=== PATIENT | female | born 1955 | race Caucasian/White ===

== ENCOUNTER 2017-02-12 07:47 | Emergency (ER) | payer BC ==
[2017-02-12 07:56] VITALS: BP 154/80
--- NOTE | 2017-02-12 08:30 | UC ---
Eye Complaint HPI - HPI Summary HPI Summary: right eye red itching draining x1 day no visual changes - History of Current Complaint Chief Complaint: UCEye Stated Complaint: EYE COMPLAINT Time Seen by Provider: 02/12/17 08:14 Hx Obtained From: Patient ?: No Onset/Duration: Sudden Onset, Lasting Days - 1 Timing: Constant Severity Initially: Mild Severity Currently: Mild Pain Intensity: 2 Pain Scale Used: 0-10 Numeric Location of Injury: Conjunctiva Alleviating Factor(s): Nothing Associated Signs And Symptoms: Positive: Drainage (Purulent) - Allergies/Home Medications Allergies/Adverse Reactions: Allergies Allergy/AdvReac Type Severity Reaction Status Date / Time Neomycin Allergy Unknown Verified 02/12/17 07:57 Reaction Details Morphine AdvReac Headache Verified 02/12/17 07:57 Home Medications: Home Medications Atorvastatin* [Lipitor 20 MG*] 20 mg PO DAILY 02/12/17 [History Confirmed ] Naproxen TAB* [Naprosyn 250 mg TAB*] 500 mg PO Q6H PRN 02/12/17 [History Confirmed 02/12/17] Omeprazole CAP* [Prilosec CAP* 20 MG] 20 mg PO DAILY 02/12/17 [History Confirmed 02/12/17] Venlafaxine EXT RELEASE CAP* [Effexor Xr CAP*] 150 mg PO DAILY 02/12/17 [ History Confirmed 02/12/17] PMH/Surg Hx/FS Hx/Imm Hx Previously Healthy: Yes - Surgical History Surgical History: None - Family History Known Family History: Positive: None - Social History Occupation: Employed Full-time Lives: With Family Alcohol Use: None Substance Use Type: None Smoking Status (MU): Never Smoked Tobacco Review of Systems Constitutional: Negative Skin: Negative Eyes: Drainage, Eye Redness ENT: Negative Respiratory: Negative Cardiovascular: Negative Gastrointestinal: Negative Genitourinary: Negative Motor: Negative Neurovascular: Negative Musculoskeletal: Negative Neurological: Negative Psychological: Negative All Other Systems Reviewed And Are Negative: Yes Physical Exam Triage Information Reviewed: Yes Appearance: Well-Appearing, No Pain Distress, Well-Nourished Vital Signs: Initial Vital Signs Temp 98.2 F 02/12/17 07:50 Pulse 100 02/12/17 07:50 Resp 16 02/12/17 07:50 BP 154/80 02/12/17 07:50 Pulse Ox 98 02/12/17 07:50 Vital Signs Reviewed: Yes Eyes: Positive: Conjunctiva Clear - os, Conjunctiva Inflamed - od, Discharge - od, Other: - perrla, eomi, fundascopic exam wnl ENT Exam: Normal ENT: Positive: Normal ENT inspection, Hearing grossly normal. Negative: Nasal congestion, Nasal drainage, Tonsillar swelling, Tonsillar exudate, Trismus, Muffled/hoarse voice Dental Exam: Normal Neck exam: Normal Neck: Positive: Supple, Nontender, No Lymphadenopathy Respiratory Exam: Normal Respiratory: Positive: Chest non-tender, No respiratory distress, No accessory muscle use Cardiovascular Exam: Normal Cardiovascular: Positive: Pulses Normal, Brisk Capillary Refill Musculoskeletal Exam: Normal Musculoskeletal: Positive: Strength Intact, ROM Intact, No Edema Neurological Exam: Normal Neurological: Positive: Alert, Muscle Tone Normal Psychological Exam: Normal Skin Exam: Normal Eye Complaint Course/Dx - Course Course Of Treatment: warm compress, polytrim eye dropps, follow with pcp off work today - Differential Dx/Diagnosis Differential Diagnosis/HQI/PQRI: Conjunctivitis, Corneal Abrasion, Periorbital Cellulitis, Orbital Cellulitis Provider Diagnoses: OD Conjuctivitis Discharge - Discharge Plan Condition: Stable Disposition: HOME Prescriptions: Polymyx/Trimethoprim OPTH* [Polytrim OPHTH*] 1 drop RIGHT EYE Q4H #1 btl Patient Education Materials: Conjunctivitis (ED), How to Use Eye Drops (ED) Forms: *School Release Referrals: Omar Browning MD [Primary Care Provider] - If Needed
== END 2017-02-12 08:36 | disposition home or self-care (01) ==
LOC: UCCORT 07:47
DX: H10.89 Other conjunctivitis (principal); Z88.5 Allergy status to narcotic agent; Z88.1 Allergy status to other antibiotic agents
CPT/HCPCS: 99212; G0463

== ENCOUNTER 2017-10-01 15:59 | Emergency (ER) | payer SELFPAY ==
[2017-10-01] MEDS ORDERED: Lidocaine 1% MPF* 2 ML VIAL INJ ONE (16:50)
--- NOTE | 2017-10-01 16:53 | RAD ---
HISTORY: Injury, foreign body, right elbow COMPARISONS: None VIEWS: 4, Frontal, lateral, and oblique views of the right elbow FINDINGS: BONE DENSITY: Normal. BONES: There is no displaced fracture. JOINTS: There is no arthropathy. There is no posterior supracondylar fat pad to suggest a joint effusion. ALIGNMENT: There is no dislocation. SOFT TISSUES: Unremarkable. OTHER FINDINGS: There is no radiopaque foreign body. IMPRESSION: NO ACUTE OSSEOUS INJURY. IF SYMPTOMS PERSIST, RECOMMEND REPEAT IMAGING.
--- NOTE | 2017-10-01 17:26 | UC ---
Laceration HPI - HPI Summary HPI Summary: fell on right elbow and laceration from broken glass happened at 1:30 today - History Of Current Complaint Chief Complaint: UCLaceration Stated Complaint: RIGHT ELBOW INJURY (WC) Time Seen by Provider: 10/01/17 16:49 Hx Obtained From: Patient Laceration Location: Elbow - right Mechanism Of Injury: FB Potential Onset/Duration: Sudden Onset, Lasting Hours - 3 hours ago Severity: Moderate Pain Intensity: 3 Pain Scale Used: 0-10 Numeric Aggravating Factors: Nothing Related History: Occupational Injury, Dominant Hand Right - Allergies/Home Medications Allergies/Adverse Reactions: Allergies Allergy/AdvReac Type Severity Reaction Status Date / Time Neomycin Allergy Unknown Verified 10/01/17 16:24 Reaction Details Morphine AdvReac Headache Verified 10/01/17 16:24 PMH/Surg Hx/FS Hx/Imm Hx Previously Healthy: Yes Endocrine History: Dyslipidemia GI/ History: Gastroesophageal Reflux Psychological History: Depression - Surgical History Surgical History: Yes Surgery Procedure, Year, and Place: [facility]--1980 - Family History Known Family History: Positive: None - Social History Occupation: Employed Full-time Lives: With Family Alcohol Use: Rare Substance Use Type: None Smoking Status (MU): Never Smoked Tobacco Review of Systems Constitutional: Negative Skin: Other - laceration times 2 on right elbow #1 is 3sm long #2 is 1.5 cm long Eyes: Negative ENT: Negative Respiratory: Negative Cardiovascular: Negative Gastrointestinal: Negative Genitourinary: Negative Motor: Negative Neurovascular: Negative Musculoskeletal: Negative Neurological: Negative Psychological: Negative Is Patient Immunocompromised?: No All Other Systems Reviewed And Are Negative: Yes Physical Exam Triage Information Reviewed: Yes Appearance: Well-Appearing, No Pain Distress, Well-Nourished Vital Signs: Initial Vital Signs Temp 97.8 F 10/01/17 16:14 Pulse 107 10/01/17 16:14 Resp 16 10/01/17 16:14 BP 147/84 10/01/17 16:14 Pulse Ox 96 10/01/17 16:14 Vital Signs Reviewed: Yes Eye Exam: Normal Eyes: Positive: Conjunctiva Clear ENT Exam: Normal ENT: Positive: Normal ENT inspection, Hearing grossly normal. Negative: Nasal congestion, Nasal drainage, Trismus, Muffled voice, Hoarse voice Dental Exam: Normal Neck exam: Normal Neck: Positive: Supple, Nontender Respiratory Exam: Normal Respiratory: Positive: Chest non-tender, No respiratory distress, No accessory muscle use Cardiovascular Exam: Normal Cardiovascular: Positive: RRR, Pulses Normal, Brisk Capillary Refill Musculoskeletal Exam: Normal Musculoskeletal: Positive: Strength Intact, ROM Intact, No Edema Neurological Exam: Normal Neurological: Positive: Alert, Muscle Tone Normal Psychological Exam: Normal Skin Exam: Other Skin: Positive: Other - 1-3 3cm linear 2-1.5 cm horizontal Laceration Repair - Laceration Repair 1 Description: Linear Laceration Size After Repair: Length (cm) - 3, Width (mm) - 3, Depth (mm) - 2 Modified For Repair: No Type Injection: Local Anesthesia Used: 1.0% Lido - 4ml Cleansing Completed Via Routine Prep: Yes Irrigation With Pressure Irrigation Device: Yes Closure Method: Single Layer Suture Of: Skin - 4- number 4.0 nylon suture 2 Description: Linear Laceration Size After Repair: Length (cm) - 1.5, Width (mm) - 2, Depth (mm) - 2 Modified For Repair: No Type Injection: Local Anesthesia Used: 1.0% Lido - 2ml Cleansing Completed Via Routine Prep: Yes Irrigation With Pressure Irrigation Device: Yes Closure Material: Sutures Closure Method: Single Layer Suture Of: Skin Suture Type: Nylon - 2 number 4.0 Re-Evaluation - Re-Evaluation First Eval Change: Improved - patient tolerated well Laceration Course/Dx - Course/Dx Course Of Treatment: soap and water wash, tetanus up to date, return in 12-14 days for suture removal - Differential Dx - Laceration/Wound Provider Diagnoses: right elbow contusion, 2 laceration with suture repair 4.5 cm total length, elevated bp with out diagnosis of hypertension Discharge - Discharge Plan Condition: Stable Disposition: HOME Patient Education Materials: Care For Your Stitches (ED), Laceration (ED), Hypertension (ED) Referrals: Omar Browning MD [Primary Care Provider] - 2 Weeks (for blood pressure check ) Additional Instructions: return in 12-14 days for suture removal
[2017-10-01 17:33] VITALS: BP 147/84
== END 2017-10-01 17:41 | disposition home or self-care (01) ==
LOC: UCCORT 15:59
DX: S50.01XA Contusion of right elbow, initial encounter (principal); S51.011A Laceration without foreign body of right elbow, initial encounter; W01.110A Fall on same level from slipping, tripping and stumbling with subsequent striking against sharp glass, initial encounter; Y93.9 Activity, unspecified; Y92.9 Unspecified place or not applicable; Y99.0 Civilian activity done for income or pay; E78.5 Hyperlipidemia, unspecified; K21.9 Gastro-esophageal reflux disease without esophagitis; F32.9 Major depressive disorder, single episode, unspecified; Z88.5 Allergy status to narcotic agent; Z88.8 Allergy status to other drugs, medicaments and biological substances
CPT/HCPCS: 12002; 99211; G0463

== ENCOUNTER 2017-10-13 17:17 | Emergency (ER) | payer SELFPAY ==
--- NOTE | 2017-10-13 18:52 | UC ---
HPI Wound/Suture Re-check - HPI Summary HPI Summary: Suture removal right elbow - History Of Current Complaint Chief Complaint: UCSkin Stated Complaint: SUTURE REMOVAL Time Seen by Provider: 10/13/17 18:43 Hx Obtained From: Patient Onset/Duration: Sudden Onset, Lasting Days - 12, Still Present Severity: Mild Pain Intensity: 0 - Allergies/Home Medications Allergies/Adverse Reactions: Allergies Allergy/AdvReac Type Severity Reaction Status Date / Time Neomycin Allergy Unknown Verified 10/13/17 19:13 Reaction Details Morphine AdvReac Headache Verified 10/13/17 19:13 PMH/Surg Hx/FS Hx/Imm Hx Previously Healthy: No Endocrine History: Dyslipidemia GI/ History: Gastroesophageal Reflux Psychological History: Depression - Surgical History Surgical History: None Surgery Procedure, Year, and Place: [facility]--1980 - Family History Known Family History: Positive: None - Social History Occupation: Employed Full-time Lives: With Family Alcohol Use: None Substance Use Type: None Smoking Status (MU): Never Smoked Tobacco Review of Systems Constitutional: Negative Skin: Other - well healed wound right elbow Eyes: Negative ENT: Negative Respiratory: Negative Cardiovascular: Negative Gastrointestinal: Negative Genitourinary: Negative Motor: Negative Neurovascular: Negative Musculoskeletal: Negative Neurological: Negative Psychological: Negative Is Patient Immunocompromised?: No All Other Systems Reviewed And Are Negative: Yes Physical Exam Triage Information Reviewed: Yes Appearance: Well-Appearing, No Pain Distress, Well-Nourished Vital Signs Reviewed: Yes Eye Exam: Normal Eyes: Positive: Conjunctiva Clear ENT Exam: Normal ENT: Positive: Normal ENT inspection, Hearing grossly normal, Pharynx normal. Negative: Nasal congestion, Nasal drainage, Trismus, Muffled voice, Hoarse voice , Sinus tenderness Dental Exam: Normal Neck exam: Normal Neck: Positive: Supple, Nontender, No Lymphadenopathy Respiratory Exam: Normal Respiratory: Positive: No respiratory distress, No accessory muscle use Cardiovascular Exam: Normal Cardiovascular: Positive: RRR, Pulses Normal, Brisk Capillary Refill Musculoskeletal Exam: Normal Neurological Exam: Normal Neurological: Positive: Alert, Muscle Tone Normal Psychological Exam: Normal Skin Exam: Other Skin: Positive: Other - well healed wound right elbow Re-Evaluation - Re-Evaluation First Eval Change: Improved - sutures removed patient tolerated well wound well healed and approximated Course/Dx - Course Course Of Treatment: soap and water wash, follow with pcp prn - Differential Dx - Laceration/Wound Provider Diagnoses: suture removal, healed wound right elbow Discharge - Discharge Plan Condition: Stable Disposition: HOME Patient Education Materials: Stitches Removal (ED) Referrals: Omar Browning MD [Primary Care Provider] - If Needed
[2017-10-13 19:18] VITALS: BP 151/68
== END 2017-10-13 19:19 | disposition home or self-care (01) ==
LOC: UCCORT 17:17
DX: Z48.02 Encounter for removal of sutures (principal); E78.5 Hyperlipidemia, unspecified; K21.9 Gastro-esophageal reflux disease without esophagitis; F32.9 Major depressive disorder, single episode, unspecified; Z88.3 Allergy status to other anti-infective agents; Z88.5 Allergy status to narcotic agent

== ENCOUNTER 2018-03-19 17:03 | Emergency (ER) | payer BC, OTHER ==
[2018-03-19 17:17] VITALS: BP 143/95
--- NOTE | 2018-03-19 17:52 | UC ---
Eye Complaint HPI - HPI Summary HPI Summary: PT STATES 2 DAYS AGO HER R EYE FELT IRRITATED. TODAY, THE EYE TURNED RED, IS TEARING AND BURNING. 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 SHE ADMITS TO LIGHT SENSITIVITY BUT DENIES ANY DISCHARGE OR VISUAL CHANGES. SHE HAS NO URI OR INJURY. SHE HAS DRY EYE AND IS USING THE DROPS. SHE NOTES THAT THIS IS DIFFERENT. SHE DENIES ANY FEVER, SNEEZING, ITCHY EYES. NO CONTACT USE. SHE WEARS GLASSES. - History of Current Complaint Chief Complaint: UCEye Stated Complaint: RIGHT EYE IRRITATION Time Seen by Provider: 03/19/18 17:18 Hx Obtained From: Patient Onset/Duration: Gradual Onset Timing: Constant Pain Intensity: 0 Aggravating Factor(s): Light Alleviating Factor(s): Nothing Associated Signs And Symptoms: Positive: Photophobia. Negative: Drainage ( Purulent), Vision Impairment Bilateral, Fever, Swelling - Risk Factors Penetrating Injury Risk Factor: Negative Globe Rupture Risk Factors: Negative Acute Glaucoma Risk Factors: Negative Optic Artery Occlusion Risk Factors: Negative - Allergies/Home Medications Allergies/Adverse Reactions: Allergies Allergy/AdvReac Type Severity Reaction Status Date / Time neomycin Allergy Unknown Unknown Verified 03/19/18 17:19 Reaction Details morphine AdvReac Intermediate Headache Verified 03/19/18 17:18 Home Medications: Home Medications Phendimetrazine Tartrate 35 mg PO BID 03/19/18 [History Confirmed 03/19/18] PMH/Surg Hx/FS Hx/Imm Hx Endocrine History: Dyslipidemia GI/ History: Gastroesophageal Reflux Psychological History: Depression - Surgical History Surgical History: None Surgery Procedure, Year, and Place: [facility]--1980 - Family History Known Family History: Positive: None - Social History Occupation: Employed Full-time Alcohol Use: None Substance Use Type: None Smoking Status (MU): Never Smoked Tobacco - Immunization History Most Recent Influenza Vaccination: NO Vaccination Up to Date: Yes Review of Systems Constitutional: Negative Skin: Negative Eyes: Eye Redness, Photophobia ENT: Negative Respiratory: Negative Cardiovascular: Negative Gastrointestinal: Negative Genitourinary: Negative Motor: Negative Neurovascular: Negative Musculoskeletal: Negative Neurological: Negative Psychological: Negative Is Patient Immunocompromised?: No All Other Systems Reviewed And Are Negative: Yes Physical Exam Triage Information Reviewed: Yes Appearance: Well-Appearing Vital Signs: Initial Vital Signs Temp 98.8 F 03/19/18 17:11 Pulse 99 06/04/18 17:11 Resp 18 03/19/18 17:11 BP 143/95 03/19/18 17:11 Pulse Ox 100 03/19/18 17:11 Vital Signs Reviewed: Yes Eyes: Positive: Other: - visual acuity with glasses OU 20/15, OD 20/20, OS 20/ 20. no periorbital edema or erythema. PERRL, EOMI. Conjunctiva OD moderately injected, OS slightly injected. AC's clear. Lids everted and no FB's. Tetracaine then stained OU. All pain resolved as did the photophobia. Pt has an uptake of stain at 5 o clock OD but no overt ulceration, abrasion or dendrite. No perforation. ENT: Positive: Pharynx normal, TMs normal, Other - no auricular adenopathy. Negative: Nasal congestion, Nasal drainage Neck: Positive: Supple, Nontender, No Lymphadenopathy Respiratory: Positive: Lungs clear, Normal breath sounds Cardiovascular: Positive: RRR, No Murmur Abdomen Description: Positive: Nontender, No Organomegaly, Soft Bowel Sounds: Positive: Present Musculoskeletal: Positive: ROM Intact Neurological: Positive: Alert Psychological: Positive: Age Appropriate Behavior Skin Exam: Normal Eye Complaint Course/Dx - Course Course Of Treatment: no concern for glaucoma or perforation. not typical of an ulceration. could be a healing abrasion, abrasion or even an early ulceration. does not look c/w a dendrite. will cover with cipro drops and f/u with her opthamology doctor in am or soone if worse. - Differential Dx/Diagnosis Provider Diagnoses: Focal corneal inflammation 5 o' clock OD Discharge - Sign-Out/Discharge Documenting (check all that apply): Discharge/Admit/Transfer - Discharge Plan Condition: Critical Disposition: HOME Prescriptions: Ciprofloxacin 0.3% OPTH.ESTHER* [Cipro 0.3% Opth*] 1 drop RIGHT EYE Q4H 7 Days #1 btl Patient Education Materials: Eye Pain (ED) Referrals: Omar Browning MD [Primary Care Provider] - If Needed Armando HENRY,Cortes Bonner [Doctor of Osteopathy] - 1 Day Additional Instructions: FOLLOW UP YOUR EYE DOCTOR FIRST THING IN THE AM WHEN THEY OPEN. CALL HIM IMMEDIATELY FOR ANY CHANGES OR WORSENING. DIAGNOSIS: FOCAL CORNEAL INFLAMMATION 5 O CLOCK R EYE - Billing Disposition and Condition Condition: CRITICAL Disposition: Home
[2018-03-19] MEDS ORDERED: Tetracaine 0.5% OPTH.SOL 4 ML* 1 DROP BTL RIGHT EYE ONE (17:55)
[2018-03-19] MEDS ORDERED: Fluorescein Sod TOPICAL 0.6* 0.6 MG TEST OPHTHALMIC ONE (17:55)
== END 2018-03-19 18:39 | disposition home or self-care (01) ==
LOC: UCCORT 17:03
DX: H57.8 Other specified disorders of eye and adnexa (principal); Z88.6 Allergy status to analgesic agent; E78.5 Hyperlipidemia, unspecified; F32.9 Major depressive disorder, single episode, unspecified
CPT/HCPCS: 99212; A9270-GY; G0463

== ENCOUNTER 2018-12-12 19:51 | Emergency (ER) | payer BC ==
[2018-12-12 20:08] VITALS: BP 148/86
[2018-12-12] MEDS ORDERED: Acetaminophen TAB* 325 MG PO ONE (20:18)
--- NOTE | 2018-12-12 20:23 | ED ---
Respiratory - HPI Summary HPI Summary: 63 yr old female with the complaint of runny nose, cough, ear pressure, fever, chills. Onset of symptoms about 4-5 days. No dizziness. No SOB. She denies having chest or rib pain. SHe states from coughing a lot she feels some soreness in the upper stomach muscles. where they join the rib cage. - History of Current Complaint Chief Complaint: UCRespiratory Stated Complaint: COUGH,RIB PAIN, EARS Time Seen by Provider: 12/12/18 20:03 Pain Intensity: 4 - Allergy/Home Medications Allergies/Adverse Reactions: Allergies Allergy/AdvReac Type Severity Reaction Status Date / Time neomycin Allergy Unknown Unknown Verified 12/12/18 20:08 Reaction Details morphine AdvReac Intermediate Headache Verified 12/12/18 20:08 Home Medications: Home Medications guaiFENesin ER TAB [Mucinex*] 600 mg PO BID 12/12/18 [History Confirmed 12/12/18 ] PMH/Surg Hx/FS Hx/Imm Hx - Surgical History Surgery Procedure, Year, and Place: [facility]--1980 Infectious Disease History: No Infectious Disease History: Denies: Traveled Outside the [place] in Last 30 Days - Family History Known Family History: Positive: None - Social History Occupation: Employed Full-time Alcohol Use: None Substance Use Type: Reports: None Smoking Status (MU): Never Smoked Tobacco Review of Systems Positive: Fever, Chills Positive: Nasal Discharge Positive: Cough All Other Systems Reviewed And Are Negative: Yes Physical Exam Triage Information Reviewed: Yes Vital Signs On Initial Exam: Initial Vitals Temp Pulse Resp BP Pulse Ox 101.0 F 105 16 148/86 96 12/12/18 20:04 12/12/18 20:04 12/12/18 20:04 12/12/18 20:04 12/12/18 20:04 Vital Signs Reviewed: Yes Appearance: Positive: Well-Appearing, No Pain Distress Skin: Positive: Warm, Skin Color Reflects Adequate Perfusion Head/Face: Positive: Normal Head/Face Inspection Eyes: Positive: EOMI ENT: Positive: Pharyngeal erythema, Nasal congestion, Nasal drainage, TMs normal Neck: Positive: Nontender Respiratory/Lung Sounds: Positive: Clear to Auscultation, Breath Sounds Present Cardiovascular: Positive: RRR. Negative: Murmur Abdomen Description: Positive: Nontender Musculoskeletal: Positive: Strength/ROM Intact Neurological: Positive: Sensory/Motor Intact, Alert, Oriented to Person Place, Time, CN Intact II-III, Normal Gait, Speech Normal Psychiatric: Positive: Normal - Erica Coma Scale Best Eye Response: 4 - Spontaneous Best Motor Response: 6 - Obeys Commands Best Verbal Response: 5 - Oriented Coma Scale Total: 15 Diagnostics - Vital Signs Vital Signs Temp Pulse Resp BP Pulse Ox 12/12/18 20:04 101.0 F 105 16 148/86 96 - Laboratory Lab Statement: Any lab studies that have been ordered have been reviewed, and results considered in the medical decision making process. Disposition - Course Course Of Treatment: 63 yr old with URI symptoms. - Diagnoses Provider Diagnoses: Sinusitis, Acute bronchitis Discharge - Sign-Out/Discharge Documenting (check all that apply): Patient Departure All imaging exams completed and their final reports reviewed: No Studies - Discharge Plan Condition: Good Disposition: HOME Prescriptions: Albuterol HFA INHALER* [Ventolin HFA Inhaler*] 1 - 2 puff INH Q4H PRN #1 mdi PRN Reason: Cough Benzonatate CAP* [Tessalon 100 MG CAP*] 100 mg PO TID #14 cap Clarithromycin TAB* [Biaxin 500 MG TAB*] 500 mg PO BID #20 tab Patient Education Materials: Sinusitis (ED), Acute Bronchitis (ED), Hypertension (ED) Referrals: Omar Browning MD [Primary Care Provider] - 2 Days - Billing Disposition and Condition Condition: GOOD Disposition: Home
[2018-12-12 20:41] LABS: Influenza A Molecular NEGATIVE (Negative); Influenza B Molecular NEGATIVE (Negative)
[2018-12-12] MEDS ORDERED: Azithromycin TAB* 250 MG PO ONE (21:08)
== END 2018-12-12 21:21 | disposition home or self-care (01) ==
LOC: UCCORT 19:51
DX: J20.9 Acute bronchitis, unspecified (principal); J32.9 Chronic sinusitis, unspecified; Z88.1 Allergy status to other antibiotic agents; Z88.5 Allergy status to narcotic agent
CPT/HCPCS: 99212; A9270-GY; G0463